=== PATIENT | female | born 1940 | race Caucasian/White ===

== ENCOUNTER → 2016-04-06 | Outpatient (CLI) | payer MEDICARE ==
--- NOTE | 2016-04-06 13:26 | CT ---
EXAMINATION TYPE: CT abdomen pelvis wo con DATE OF EXAM: 04/06/2016 1:15 PM COMPARISON: NONE HISTORY: Atrophy of vulva CT DLP: 233.6 mGycm FINDINGS: LUNG BASES: No evidence for nodule. No evidence for infiltrate. Small hiatal hernia noted. LIVER/GB: The gallbladder is unremarkable. No space-occupying hepatic lesion. PANCREAS: No pancreatic mass identified. No inflammatory process seen. SPLEEN: No evidence for splenomegaly. No intrasplenic lesions seen. ADRENALS: No adrenal nodules identified. No evidence for thickening. KIDNEYS: No evidence for renal mass. No nephrolithiasis. No hydronephrosis. BOWEL: Appendix has a normal appearance. No evidence of bowel obstruction. No inflammatory process. Lymph nodes: No evidence for adenopathy greater than 1 cm. Abdominal aorta: Atheromatous changes seen. No evidence for aneurysm. Genital organs: No significant abnormality. Other: Severe degenerative changes lumbar spine. Central stenosis L4-5. IMPRESSION: NO SIGNIFICANT ABNORMALITY SEEN.
== END | disposition home or self-care (01) ==
LOC: RADCTMAIN 12:40
PROVIDERS: ATTEND Urology
DX: N90.5 Atrophy of vulva (principal)
CPT/HCPCS: 74176

== ENCOUNTER → 2019-11-27 | Outpatient (CLI) | payer MEDICARE ==
--- NOTE | 2019-11-30 08:25 | MM ---
Reason for exam: additional evaluation requested from prior study. Last mammogram was performed 1 year and 1 month ago. History: Patient is postmenopausal and history of breast cancer. Lumpectomy of the right breast, 2011. Radiation therapy of the right breast, 2011. Physical Findings: Nurse did not find any significant physical abnormalities on exam. MG 3D Diag Mammo W/Cad ISABELL Bilateral CC and MLO view(s) were taken. Prior study comparison: November 05, 2018, mammogram. September 16, 2017, mammogram. July 10, 2016, mammogram. The breast tissue is heterogeneously dense. This may lower the sensitivity of mammography. Post surgical changes right breast upper outer quadrant. No significant new findings when compared with previous films. These results were verbally communicated with the patient and result sheet given to the patient on 11/27/19. ASSESSMENT: Benign, BI-RAD 2 RECOMMENDATION: Follow-up diagnostic mammogram of both breasts in 1 year.
== END | disposition home or self-care (01) ==
LOC: RADMAMWWP 14:13
PROVIDERS: ATTEND Family Medicine
DX: D05.11 Intraductal carcinoma in situ of right breast (principal)
CPT/HCPCS: 77066; G0279; 77062

== ENCOUNTER → 2024-02-10 | Outpatient (CLI) | payer MEDICARE ==
--- NOTE | 2024-02-10 16:19 | BD ---
EXAMINATION TYPE: Axial Bone Density DATE OF EXAM: 02/10/2024 CLINICAL HISTORY: 83 years old Female. ICD-10 CODE: M810 AGE RELATED OSTEO , Additional History: Height: 63 Weight: 121.6 FRAX RISK QUESTIONS: Alcohol (3 or more units per day): no Family History (Parent hip fracture): no Glucocorticoids (More than 3mos): no (Ex: prednisone, prednisolone, methylprednisolone, dexamethasone, and hydrocortisone). History of Fracture in Adulthood: yes Secondary Osteoporosis: 1. Type 1 Diabetes: no 2. Hyperthyroidism: no 3. Menopause before 45: no 4. Malnutrition: no 5. Chronic liver disease: no Rheumatoid Arthritis: no Current Tobacco Use: no RISK FACTORS HISTORY OF: Hip Fracture (Right/Left): no Spine Fracture: no History of Wrist Fracture: no Surgery to Spine/Hip(right/left)/Wrist (right/left): no MEDICATIONS: Thyroid Medications: Levothyroxine How Long: about 30 years Osteoporosis Medications: no EXAM MEASUREMENTS: Bone mineral densitometry was performed using the [employer] System. Bone mineral density as measured about the Lumbar spine is: ----- L1-L4(G/cm2): 1.234 T Score Values are as follows: ----- L1: -1.5 ----- L2: -1.2 ----- L3: 0.6 ----- L4: 2.3 ----- L1-L4: 0.5 Z Score Values are as follows: ----- L1: 0.8 ----- L2: 1.0 ----- L3: 2.9 ----- L4: 4.6 ----- L1-L4: 2.7 Baseline Study Bone mineral density about the R hip (g/cm2): 0.809 Bone mineral density about the L hip (g/cm2): 0.813 T Score values are as follows: -----R Neck: -2.0 -----L Neck: -1.7 -----R Total: -1.6 -----L Total: -1.5 Z Score values are as follows: -----R Neck: 0.6 -----L Neck: 0.9 -----R Total: 1.0 -----L Total: 1.0 Baseline Study FRAX%s: The graph provided illustrates a 19.4% chance for a major osteoporotic fx and a 5.9 chance fo r the hips probability for fx in 10 years time. IMPRESSION: Osteopenia (T Score between -2.5 and -1). There is slightly increased risk of fracture and the patient may be considered for treatment. Re-Screen 2-5 years. NOTE: T-SCORE=SD OF THE YOUNG ADULT MEAN. [facility], , 02/10/2024 4:16 PM
== END | disposition home or self-care (01) ==
LOC: RADBDWWP 12:41
PROVIDERS: ATTEND Family Medicine
DX: M81.0 Age-related osteoporosis without current pathological fracture (principal); M85.89 Other specified disorders of bone density and structure, multiple sites
CPT/HCPCS: 77080

== ENCOUNTER → 2024-02-13 | Outpatient (CLI) | payer MEDICARE ==
[2024-02-13] MEDS: DENOSUMAB 60 MG/ML 1 ML SYRINGE SQ ONE (14:24)
[2024-02-13 14:32] VITALS: BP 164/68; PULSE 84; RESP 16; TEMP 97.8
== END ==
LOC: PROCWHC3 14:14
PROVIDERS: ATTEND Family Medicine
DX: M81.0 Age-related osteoporosis without current pathological fracture (principal)
CPT/HCPCS: 96372; J0897

== ENCOUNTER → 2024-08-17 | Outpatient (CLI) | payer MEDICARE ==
[2024-08-17 14:10] VITALS: RESP 18; TEMP 98.2
[2024-08-17] MEDS: DENOSUMAB 60 MG/ML 1 ML SYRINGE SQ NR (14:11)
[2024-08-17 14:14] VITALS: BP 128/77; PULSE 82
== END ==
LOC: PROCWHC3 14:00
PROVIDERS: ATTEND Family Medicine
DX: M81.0 Age-related osteoporosis without current pathological fracture (principal)
CPT/HCPCS: 96372; J0897